=== PATIENT | female | born 1990 | race Caucasian/White ===

== ENCOUNTER 2018-04-03 19:09 | Emergency (ER) | payer OTHER ==
[~2018-04-03] VITALS: Ht 172.7 cm; Wt 97.5 kg
[~2018-04-03 19:09] MED LIST: ALBUTEROL0.09 MG/A2 INH; AMOXICILLIN500 MG PO; AMOXIL500 MG PO; ANAPROX DS550 MG PO; BACTRIM DS 8001 TA1 PO; BENTYL10 MG PO; CLARITIN10 MG PO; COLACE100 MG PO; DONNATAL1 TAB PO; FIORICET 325 MG1 TAB PO; FLINTSTONES M200 MCG PO; HYDROCODONE BIT1 T11 PO; MACROBID100 M1 PO; NAPROSYN500 MG PO; OMNICEF300 MG PO; PEPCID20 MG PO; PREDNICOT20 MG PO; PRENATAL1 TA6 PO; REGLAN10 MG PO; TESSALON PERLE200 MG PO; TYLENOL EXTRA500 M1 PO; ZANTAC150 MG PO; ZOFRAN ODT4 MG SL; ZOFRAN4 MG PO; ZOLOFT100 MG PO; ZOLOFT25 MG PO; ZOLOFT50 MG PO; Zofran4 MG PO
[2018-04-03 19:32] LABS: BASO % 0.4 % (0.0-1.0); EOS # 0.2 10*3/uL (0.0-0.4); EOS % 1.4 % (1.0-4.0); HEMATOCRIT 40.7 % (37.0-47.0); HEMOGLOBIN 13.5 g/dl (12.0-16.0); LYMPH # 3.2 10*3/uL (1.3-4.4); LYMPH % 30.5 % (27.0-41.0); MEAN CELL VOLUME 87.2 fl (81.0-99.0); MEAN CORPUSCULAR HGB 28.9 pg (27.0-31.0); MEAN CORPUSCULAR HGB CONC 33.2 g/dl (33.0-37.0); MEAN PLATELET VOLUME 9.8 fl (9.6-12.3); MONO # 0.5 10*3/uL (0.1-1.0); MONO % 4.6 % (3.0-9.0); NEUT # 6.6 10*3/uL (2.3-7.9); PLATELET COUNT AUTOMATED 307 10*3/uL (130-400); RED BLOOD COUNT 4.67 10*6/uL (4.10-5.10); RED CELL DISTRI WIDTH 13.7 % (0-14.5); WHITE BLOOD COUNT 10.5 10*3/uL (4.8-10.8)
[2018-04-03 19:42] LABS: BILIRUBIN NEGATIVE (NEGATIVE); BLOOD NEGATIVE (NEGATIVE); CLARITY SL CLOUDY (CLEAR); COLOR YELLOW (YELLOW); GLUCOSE NEGATIVE (NEGATIVE); KETONE NEGATIVE (NEGATIVE); LEUKO ESTERASE 1+ (NEGATIVE); NITRITE NEGATIVE (NEGATIVE)
[2018-04-03 19:47] LABS: ALBUMIN 3.8 gm/dl (3.1-4.5); ALKALINE PHOSPHATASE 77 U/L (45-117); BUN 10 mg/dl (7-24); CHLORIDE 106 mmol/L (98-107); CREATININE 0.86 mg/dL (0.55-1.02); LIPASE 86 U/L (73-393); SGOT/AST 14 IU/L (3-35); SGPT/ALT 22 U/L (12-78); SODIUM 139 mmol/L (136-145); TOTAL PROTEIN 6.9 gm/dL (6.4-8.2)
[2018-04-03 19:56] LABS: BACTERIA 2+; EPITHELIAL CELLS TNTC
[2018-04-03] MEDS ORDERED: AMINOPHYLLIN200 MG PO (20:30)
== END 2018-04-03 20:36 | disposition home or self-care (01) ==
LOC: ED 19:09
PROVIDERS: Physician Assistant
DX: N39.0 Urinary tract infection, site not specified (principal); Z79.899 Other long term (current) drug therapy

== ENCOUNTER 2019-04-03 19:02 | Emergency (ER) | payer OTHER ==
[~2019-04-03] VITALS: Ht 175.2 cm; Wt 99.8 kg
[~2019-04-03 19:02] MED LIST changes: +AMINOPHYLLIN200 MG PO; +CEFUROXIME AXE500 MG PO
[2019-04-03 19:35] LABS: BILIRUBIN NEGATIVE (NEGATIVE); BLOOD TRACE-LYSED (NEGATIVE); CLARITY SL CLOUDY (CLEAR); COLOR YELLOW (YELLOW); GLUCOSE NEGATIVE (NEGATIVE); KETONE NEGATIVE (NEGATIVE); LEUKO ESTERASE TRACE (NEGATIVE); NITRITE NEGATIVE (NEGATIVE); SPECIFIC GRAVITY 1.025 (1.005-1.030)
[2019-04-03 19:42] LABS: BACTERIA 3+; RBC 0-2 rbc/hpf (0-2); YEAST TRACE
[2019-04-03] MEDS ORDERED: MACROBID100 M1 PO (20:34)
== END 2019-04-03 20:30 | disposition home or self-care (01) ==
LOC: ED 19:02
PROVIDERS: Emergency Medicine
DX: O23.41 Unspecified infection of urinary tract in pregnancy, first trimester (principal); O26.891 Other specified pregnancy related conditions, first trimester; O99.331 Smoking (tobacco) complicating pregnancy, first trimester; G43.909 Migraine, unspecified, not intractable, without status migrainosus; F17.200 Nicotine dependence, unspecified, uncomplicated; Z3A.08 8 weeks gestation of pregnancy; Z79.899 Other long term (current) drug therapy

== ENCOUNTER 2019-12-05 12:20 | Emergency (ER) | payer OTHER ==
[~2019-12-05] VITALS: Ht 165.1 cm; Wt 103.4 kg
== END 2019-12-05 15:23 | disposition home or self-care (01) ==
LOC: ED 12:20
DX: R10.9 Unspecified abdominal pain (principal); G43.909 Migraine, unspecified, not intractable, without status migrainosus; F32.9 Major depressive disorder, single episode, unspecified; Z79.899 Other long term (current) drug therapy; V49.49XA Driver injured in collision with other motor vehicles in traffic accident, initial encounter; Y93.89 Activity, other specified; Y92.89 Other specified places as the place of occurrence of the external cause; Y99.8 Other external cause status

== ENCOUNTER 2020-04-17 11:02 | Emergency (ER) | payer OTHER ==
[~2020-04-17] VITALS: Ht 170.1 cm; Wt 99.8 kg
[2020-04-17 11:48] LABS: BASO % 0.3 % (0.0-1.0); EOS # 0.1 10*3/uL (0.0-0.4); EOS % 1.8 % (1.0-4.0); HEMATOCRIT 39.3 % (37.0-47.0); LYMPH # 2.1 10*3/uL (1.3-4.4); LYMPH % 26.8 % (27.0-41.0); MEAN CELL VOLUME 86.6 fl (81.0-99.0); MEAN CORPUSCULAR HGB 29.3 pg (27.0-31.0); MEAN CORPUSCULAR HGB CONC 33.8 g/dl (33.0-37.0); MEAN PLATELET VOLUME 9.6 fl (9.6-12.3); MONO # 0.4 10*3/uL (0.1-1.0); MONO % 4.6 % (3.0-9.0); NEUT # 5.2 10*3/uL (2.3-7.9); NEUT % 66.4 % (47.0-73.0); PLATELET COUNT AUTOMATED 274 10*3/uL (130-400); RED BLOOD COUNT 4.54 10*6/uL (4.10-5.10); RED CELL DISTRI WIDTH 13.8 % (0-14.5); WHITE BLOOD COUNT 7.9 10*3/uL (4.8-10.8)
[2020-04-17 11:58] LABS: BILIRUBIN NEGATIVE (NEGATIVE); BLOOD TRACE-INTACT (NEGATIVE); CLARITY SL CLOUDY (CLEAR); COLOR YELLOW (YELLOW); GLUCOSE NEGATIVE (NEGATIVE); KETONE NEGATIVE (NEGATIVE); NITRITE NEGATIVE (NEGATIVE); UROBILINOGEN 0.2 E.U./dl (0.2-1.0)
[2020-04-17 11:59] LABS: LEUKO ESTERASE NEGATIVE (NEGATIVE)
[2020-04-17 12:01] LABS: ALBUMIN 3.6 gm/dl (3.1-4.5); ALKALINE PHOSPHATASE 63 U/L (45-117); BUN 13 mg/dl (7-24); CHLORIDE 108 mmol/L (98-107); CREATININE 0.84 mg/dL (0.55-1.02); LIPASE 55 U/L (73-393); POTASSIUM 4.1 mmol/L (3.5-5.1); SGOT/AST 11 IU/L (3-35); SGPT/ALT 27 U/L (12-78); SODIUM 139 mmol/L (136-145); TOTAL PROTEIN 6.8 gm/dL (6.4-8.2)
[2020-04-17 12:11] LABS: EPITHELIAL CELLS 21-30
[2020-04-17 12:12] LABS: BACTERIA 1+
[2020-04-17] MEDS ORDERED: NAPROSYN500 MG PO (14:35)
[2020-04-17] MEDS ORDERED: FLOMAX0.4 MG PO (14:35)
[2020-04-17] MEDS ORDERED: ZOFRAN4 MG PO (14:35)
== END 2020-04-17 14:46 | disposition home or self-care (01) ==
LOC: ED 11:02
PROVIDERS: Nurse Practitioner Family
DX: N13.2 Hydronephrosis with renal and ureteral calculous obstruction (principal); G43.909 Migraine, unspecified, not intractable, without status migrainosus; Z79.899 Other long term (current) drug therapy

== ENCOUNTER 2020-06-01 11:34 | Emergency (ER) | payer OTHER ==
[~2020-06-01] VITALS: Ht 172.7 cm; Wt 102.1 kg
[~2020-06-01 11:34] MED LIST changes: +FLOMAX0.4 MG PO
[2020-06-01] MEDS ORDERED: PERCOCET 5-3251 EACH PO (13:23)
[2020-06-01] MEDS ORDERED: IBU800 MG PO (13:23)
== END 2020-06-01 14:24 | disposition home or self-care (01) ==
LOC: ED 11:34
DX: S93.401A Sprain of unspecified ligament of right ankle, initial encounter (principal); G43.909 Migraine, unspecified, not intractable, without status migrainosus; F32.9 Major depressive disorder, single episode, unspecified; Z79.899 Other long term (current) drug therapy; X58.XXXA Exposure to other specified factors, initial encounter; Y93.89 Activity, other specified; Y92.89 Other specified places as the place of occurrence of the external cause; Y99.8 Other external cause status

== ENCOUNTER 2020-09-06 17:40 | Emergency (ER) | payer OTHER ==
[~2020-09-06] VITALS: Ht 172.7 cm; Wt 117.9 kg
[~2020-09-06 17:40] MED LIST changes: +IBU800 MG PO; +PERCOCET 5-3251 EACH PO
[2020-09-06] MEDS ORDERED: AUGMENTIN 875-875 MG PO (20:23)
== END 2020-09-06 20:40 | disposition home or self-care (01) ==
LOC: ED 17:40
DX: S60.221A Contusion of right hand, initial encounter (principal); G43.909 Migraine, unspecified, not intractable, without status migrainosus; F32.9 Major depressive disorder, single episode, unspecified; F17.200 Nicotine dependence, unspecified, uncomplicated; Z79.899 Other long term (current) drug therapy; X58.XXXA Exposure to other specified factors, initial encounter; Y93.89 Activity, other specified; Y92.89 Other specified places as the place of occurrence of the external cause; Y99.8 Other external cause status

== ENCOUNTER 2021-01-25 15:19 | Emergency (ER) | payer OTHER ==
[~2021-01-25] VITALS: Ht 167.6 cm; Wt 111.1 kg
[~2021-01-25 15:19] MED LIST changes: +AUGMENTIN 875-875 MG PO
[2021-01-25] MEDS ORDERED: SEPTDS PO ×3 (15:51→16:07)
[2021-01-25] MEDS ORDERED: CEPHALEXIN500 M1 PO ×3 (15:51→16:07)
== END 2021-01-25 15:54 | disposition home or self-care (01) ==
LOC: ED 15:19
DX: L08.89 Other specified local infections of the skin and subcutaneous tissue (principal); Z79.899 Other long term (current) drug therapy

== ENCOUNTER → 2021-03-06 | Outpatient (CLI) | payer OTHER ==
[~2021-03-06] MED LIST changes: +CEPHALEXIN500 M1 PO; +SEPTDS PO
[2021-03-06 10:24] LABS: BUN 13 mg/dl (7-24); CHLORIDE 105 mmol/L (98-107); CREATININE 0.68 mg/dL (0.55-1.02); POTASSIUM 4.1 mmol/L (3.5-5.1); SODIUM 139 mmol/L (136-145)
== END | disposition home or self-care (01) ==
LOC: LAB 08:52
PROVIDERS: ATTEND Internal Medicine Nephrology
DX: E16.2 Hypoglycemia, unspecified (principal)

== ENCOUNTER → 2021-05-02 | Outpatient (CLI) | payer OTHER ==
[~2021-05-02] MED LIST changes: +PREDNISONE20 M1 PO; +ZITHROMAX250 MG PO
[2021-05-02 08:30] LABS: FREE T4 1.02 ng/dl (0.76-1.46)
[2021-05-02 08:35] LABS: THYROID STIM HORMONE (HS) 2.49 uIU/ml (0.358-4.75)
[2021-05-03 05:06] LABS: FOLLICLE STIMULATING HORMONE 2.3 mIU/mL (.); LUTEINIZING HORMONE 5.5 mIU/mL (.); PROLACTIN 55.3 ng/mL (4.8-23.3)
== END | disposition home or self-care (01) ==
LOC: LAB 07:49
PROVIDERS: ATTEND Physician Assistant Medical
DX: D35.2 Benign neoplasm of pituitary gland (principal)

== ENCOUNTER 2021-06-05 19:52 | Emergency (ER) | payer OTHER ==
[~2021-06-05] VITALS: Ht 170.1 cm; Wt 108.9 kg
[~2021-06-05 19:52] MED LIST changes: -PREDNISONE20 M1 PO; -ZITHROMAX250 MG PO
[2021-06-05] MEDS ORDERED: PREDNISONE20 M1 PO (22:35)
[2021-06-05] MEDS ORDERED: ZITHROMAX250 MG PO (22:35)
== END 2021-06-05 22:50 | disposition home or self-care (01) ==
LOC: ED 19:52
DX: J40 Bronchitis, not specified as acute or chronic (principal); Z20.822 Contact with and (suspected) exposure to COVID-19; Z79.899 Other long term (current) drug therapy

== ENCOUNTER 2021-07-25 01:01 | Emergency (ER) | payer OTHER ==
[~2021-07-25 01:01] MED LIST changes: +PREDNISONE20 M1 PO; +ZITHROMAX250 MG PO
== END 2021-07-25 02:35 | disposition left against medical advice (07) ==
LOC: ED 01:01
DX: M79.641 Pain in right hand (principal); Z53.21 Procedure and treatment not carried out due to patient leaving prior to being seen by health care provider; Y08.89XA Assault by other specified means, initial encounter; Y93.89 Activity, other specified; Y92.89 Other specified places as the place of occurrence of the external cause; Y99.8 Other external cause status

== ENCOUNTER 2021-10-08 19:40 | Emergency (ER) | payer OTHER ==
[~2021-10-08] VITALS: Ht 167.6 cm; Wt 108.9 kg
== END 2021-10-08 22:19 | disposition left against medical advice (07) ==
LOC: ED 19:40
DX: Z53.21 Procedure and treatment not carried out due to patient leaving prior to being seen by health care provider (principal)

== ENCOUNTER 2022-04-11 16:27 | Emergency (ER) | payer OTHER ==
[2022-04-11] MEDS ORDERED: BUSPAR5 MG PO (17:02)
[2022-04-11] MEDS ORDERED: PRENATAL (17:04)
[2022-04-11] MEDS ORDERED: XYLOCAINE 5%35.44 GM T (18:37)
== END 2022-04-11 18:48 | disposition home or self-care (01) ==
LOC: ED 16:27
DX: O26.893 Other specified pregnancy related conditions, third trimester (principal); T23.202A Burn of second degree of left hand, unspecified site, initial encounter; Z3A.31 31 weeks gestation of pregnancy; X08.8XXA Exposure to other specified smoke, fire and flames, initial encounter; Y93.89 Activity, other specified; Y92.89 Other specified places as the place of occurrence of the external cause; Y99.8 Other external cause status

== ENCOUNTER 2022-04-22 17:48 | Emergency (ER) | payer OTHER ==
[~2022-04-22] VITALS: Wt 102.1 kg
[~2022-04-22 17:48] MED LIST changes: +BUSPAR5 MG PO; +PRENATAL; +XYLOCAINE 5%35.44 GM T
== END 2022-04-22 20:00 | disposition home or self-care (01) ==
LOC: ED 17:48
DX: S93.401A Sprain of unspecified ligament of right ankle, initial encounter (principal); Z91.011 Allergy to milk products; W17.2XXA Fall into hole, initial encounter; Y93.89 Activity, other specified; Y92.89 Other specified places as the place of occurrence of the external cause; Y99.8 Other external cause status

== ENCOUNTER → 2023-01-14 | Outpatient (CLI) | payer OTHER | END | disposition home or self-care (01) | LOC: RAD 00:07 | PROVIDERS: ATTEND Nurse Practitioner Family | DX: K21.9 Gastro-esophageal reflux disease without esophagitis (principal); R47.02 Dysphasia; R07.0 Pain in throat ==

== ENCOUNTER → 2023-01-21 | Outpatient (CLI) | payer OTHER ==
[2023-01-21 16:10] LABS: THYROID STIM HORMONE (HS) 1.772 uIU/ml (0.550-4.780)
[2023-01-22 16:08] LABS: t-TRANSGLUTAMINASE (tTG) IGA <2 U/mL (0-3); t-TRANSGLUTAMINASE (tTG) IgG <2 U/mL (0-5)
== END | disposition home or self-care (01) ==
LOC: LAB 15:05
PROVIDERS: ATTEND Internal Medicine Gastroenterology
DX: R53.83 Other fatigue (principal); R19.7 Diarrhea, unspecified; R10.9 Unspecified abdominal pain

== ENCOUNTER 2023-04-25 17:09 | Emergency (ER) | payer OTHER ==
[~2023-04-25] VITALS: Ht 167.6 cm; Wt 108.9 kg
== END 2023-04-25 18:32 | disposition short-term general hospital (02) ==
LOC: ED 17:09
DX: O03.9 Complete or unspecified spontaneous abortion without complication (principal); G43.909 Migraine, unspecified, not intractable, without status migrainosus; F32.A Depression, unspecified; Z88.8 Allergy status to other drugs, medicaments and biological substances; Z91.011 Allergy to milk products; Z91.018 Allergy to other foods

== ENCOUNTER → 2023-07-19 | Outpatient (CLI) | payer OTHER | END | disposition home or self-care (01) | LOC: MRI 00:25 | PROVIDERS: ATTEND Nurse Practitioner Family | DX: G43.009 Migraine without aura, not intractable, without status migrainosus (principal); R68.89 Other general symptoms and signs; H53.9 Unspecified visual disturbance; E23.6 Other disorders of pituitary gland ==

== ENCOUNTER 2024-03-09 07:10 | Emergency (ER) | payer OTHER ==
[~2024-03-09] VITALS: Ht 165.1 cm; Wt 111.1 kg
[2024-03-09] MEDS ORDERED: OMEPRAZOLE40 MG PO (07:21)
[2024-03-09] MEDS ORDERED: BUSPIRONE HCL10 MG PO (07:21)
[2024-03-09] MEDS ORDERED: FLUOXETINE HCL40 MG PO (07:21)
[2024-03-09] MEDS ORDERED: FAMOTIDINE40 MG PO (07:21)
[2024-03-09] MEDS ORDERED: 'CLONIDINE0.1 MG PO (07:21)
[2024-03-09] MEDS ORDERED: Acetaminophen/Oxycodone 5 MG/325 MG TABLET PO ONE (07:35)
[2024-03-09] MEDS ORDERED: MELOXICAM15 MG PO (08:21)
== END 2024-03-09 08:32 | disposition home or self-care (01) ==
LOC: ED 07:10
DX: S43.402A Unspecified sprain of left shoulder joint, initial encounter (principal); S09.8XXA Other specified injuries of head, initial encounter; M25.522 Pain in left elbow; G43.909 Migraine, unspecified, not intractable, without status migrainosus; F32.A Depression, unspecified; Z88.8 Allergy status to other drugs, medicaments and biological substances; Z91.011 Allergy to milk products; Z91.018 Allergy to other foods; W19.XXXA Unspecified fall, initial encounter; Y93.89 Activity, other specified; Y92.89 Other specified places as the place of occurrence of the external cause; Y99.8 Other external cause status

== ENCOUNTER → 2024-07-13 | Outpatient (CLI) | payer OTHER ==
[~2024-07-13] MED LIST changes: +'CLONIDINE0.1 MG PO; +BUSPIRONE HCL10 MG PO; +FAMOTIDINE40 MG PO; +FLUOXETINE HCL40 MG PO; +MELOXICAM15 MG PO; +OMEPRAZOLE40 MG PO
== END | disposition home or self-care (01) ==
LOC: RAD 13:55
PROVIDERS: ATTEND Nurse Practitioner Family
DX: M25.561 Pain in right knee (principal)

== ENCOUNTER → 2024-08-24 | Outpatient (CLI) | payer OTHER | END | disposition home or self-care (01) | LOC: MRI 08-10 01:48 | PROVIDERS: ATTEND Orthopaedic Surgery | DX: S83.211A Bucket-handle tear of medial meniscus, current injury, right knee, initial encounter (principal); M25.461 Effusion, right knee; X58.XXXA Exposure to other specified factors, initial encounter; Y93.89 Activity, other specified; Y92.89 Other specified places as the place of occurrence of the external cause; Y99.8 Other external cause status ==

== ENCOUNTER 2024-10-18 07:10 | Emergency (ER) | payer OTHER ==
[~2024-10-18] VITALS: Wt 108.9 kg
[2024-10-18] MEDS ORDERED: CETIRIZINE HYDR10 MG PO (07:22)
[2024-10-18] MEDS ORDERED: MELOXICAM15 MG PO (07:22)
[2024-10-18] MEDS ORDERED: NAPROSYN500 MG PO (07:36)
== END 2024-10-18 07:40 | disposition home or self-care (01) ==
LOC: ED 07:10
DX: S63.91XA Sprain of unspecified part of right wrist and hand, initial encounter (principal); M77.9 Enthesopathy, unspecified; Z91.048 Other nonmedicinal substance allergy status; Z91.011 Allergy to milk products; Z79.899 Other long term (current) drug therapy; X58.XXXA Exposure to other specified factors, initial encounter; Y93.89 Activity, other specified; Y92.89 Other specified places as the place of occurrence of the external cause; Y99.8 Other external cause status

== ENCOUNTER → 2025-06-07 | Outpatient (CLI) | payer OTHER ==
[~2025-06-07] MED LIST changes: +CETIRIZINE HYDR10 MG PO
[2025-06-07 12:28] LABS: BASO # 0.0 10*3/uL (0.0-0.1); BASO % 0.2 % (0.0-1.0); EOS # 0.1 10*3/uL (0.0-0.4); EOS % 1.3 % (1.0-4.0); MEAN CELL VOLUME 87.4 fl (81.0-99.0); MEAN CORPUSCULAR HGB 28.8 pg (27.0-31.0); MEAN PLATELET VOLUME 9.5 fl (9.6-12.3); MONO # 0.4 10*3/uL (0.1-1.0); MONO % 4.7 % (3.0-9.0); NEUT # 5.9 10*3/uL (2.3-7.9); NEUT % 64.8 % (47.0-73.0); NUCLEATED RED BLOOD CELL 0.0 % (0.0-0.0); NUCLEATED RED BLOOD CELL 0.0 10*3/uL (0.0-0.0); PLATELET COUNT AUTOMATED 309 10*3/uL (130-400); RED CELL DISTRI WIDTH 14.0 % (0-14.5)
[2025-06-07 12:56] LABS: BUN 12 mg/dl (9-23); LDL CHOLESTEROL 62 mg/dL (9-159); SGPT/ALT 18 U/L (5-49)
[2025-06-07 12:57] LABS: VITAMIN D, 25-HYDROXY 29.8 ng/mL (30-100)
== END ==
LOC: LAB 11:41
PROVIDERS: ATTEND Nurse Practitioner Family
DX: R55 Syncope and collapse (principal)

== ENCOUNTER 2025-06-12 18:20 | Emergency (ER) | payer OTHER ==
[~2025-06-12] VITALS: Ht 167.6 cm; Wt 106.6 kg
[2025-06-12] MEDS ORDERED: Acetaminophen/Oxycodone 5 MG/325 MG TABLET PO ONE (18:55)
== END 2025-06-12 21:25 | disposition home or self-care (01) ==
LOC: ED 18:20
DX: S16.1XXA Strain of muscle, fascia and tendon at neck level, initial encounter (principal); S46.911A Strain of unspecified muscle, fascia and tendon at shoulder and upper arm level, right arm, initial encounter; S09.90XA Unspecified injury of head, initial encounter; F32.A Depression, unspecified; K21.9 Gastro-esophageal reflux disease without esophagitis; G43.909 Migraine, unspecified, not intractable, without status migrainosus; Z91.048 Other nonmedicinal substance allergy status; Z91.011 Allergy to milk products; Z79.899 Other long term (current) drug therapy; Z87.442 Personal history of urinary calculi; W10.8XXA Fall (on) (from) other stairs and steps, initial encounter; Y93.89 Activity, other specified; Y92.89 Other specified places as the place of occurrence of the external cause; Y99.8 Other external cause status

== ENCOUNTER 2025-08-28 14:43 | Emergency (ER) | payer OTHER ==
[~2025-08-28] VITALS: Ht 167.6 cm; Wt 106.6 kg
[2025-08-28] MEDS ORDERED: diazePAM 5 MG TAB PO ONE ×3 (15:15→17:00)
[2025-08-28 15:29] LABS: BASO # 0.0 10*3/uL (0.0-0.1); BASO % 0.3 % (0.0-1.0); EOS # 0.2 10*3/uL (0.0-0.4); EOS % 2.3 % (1.0-4.0); MEAN CELL VOLUME 87.9 fl (81.0-99.0); MEAN CORPUSCULAR HGB 29.1 pg (27.0-31.0); MEAN PLATELET VOLUME 9.2 fl (9.6-12.3); MONO # 0.4 10*3/uL (0.1-1.0); MONO % 5.2 % (3.0-9.0); NEUT # 3.6 10*3/uL (2.3-7.9); NEUT % 52.3 % (47.0-73.0); NUCLEATED RED BLOOD CELL 0.0 % (0.0-0.0); NUCLEATED RED BLOOD CELL 0.0 10*3/uL (0.0-0.0); PLATELET COUNT AUTOMATED 301 10*3/uL (130-400); RED CELL DISTRI WIDTH 13.8 % (0-14.5)
[2025-08-28 16:36] LABS: BUN 11 mg/dl (9-23); CPK 98 U/L (34-171)
== END 2025-08-28 17:16 | disposition home or self-care (01) ==
LOC: ED 14:43
PROVIDERS: Emergency Medicine
DX: R07.89 Other chest pain (principal); F41.9 Anxiety disorder, unspecified; Z88.8 Allergy status to other drugs, medicaments and biological substances; Z91.018 Allergy to other foods; Z91.0110 Allergy to milk products, unspecified